=== PATIENT | male | born 1985 | race Caucasian/White ===

== ENCOUNTER → 2017-02-01 | Outpatient (CLI) | payer BC | LOC: KOH-I 11:43 | DX: M54.40 Lumbago with sciatica, unspecified side (principal) | CPT/HCPCS: 72100 ==

== ENCOUNTER → 2020-08-05 | Outpatient (CLI) | payer BC | LOC: KOH-I 14:14 | DX: R07.9 Chest pain, unspecified (principal); J98.11 Atelectasis | CPT/HCPCS: 71046 ==